=== PATIENT | female | born 1960 | race Caucasian/White ===

== ENCOUNTER → 2018-01-27 | Outpatient (CLI) | payer BC ==
--- NOTE | 2018-01-27 12:28 | RADIOLOGY IMAGING REPORT ---
FACILITY: [facility] PATIENT NAME: Jackie Gutierrez : 1960 MR: [id number] V: [id number] EXAM DATE: ORDERING PHYSICIAN: KEELEY MCDUFFIE TECHNOLOGIST: Location: [facility] [place] Patient: Jackie Gutierrez : 1960 Visit/Account:[id number] Date of Sevice: 01/27/2018 DEXA Scan Clinical history: Hyperparathyroidism. Comparison: None available. LUMBAR SPINE: The bone mineral density (BMD) measured from L1-L4 correlates with a Z-score -0.2 and a T-score of -1 .5 which is osteopenia as defined by the World Health Organization. The corresponding risk of fractu re in the lumbar spine is 3 times increased compared with a young adult reference population. HIP: Bone mineral density (BMD) measured in the Left total hip region correlates with a Z-score -0.4 and a T-score of -1.4 which is osteopenia as defined by the World Health Organization. The corresponding risk of fracture in the hip is 2-3 times increased compared with a young adult reference population. T score left femoral neck -1.7 Bone mineral density (BMD) measured in the Femoral Neck region measures 0.804 g/cm2. Impression: 1. Lumbar spine: Osteopenia. 2. Left Hip: Osteopenia. 3. Femoral Neck: Bone Mineral Density is 0.804 g/cm2 The next DEXA scan of this patient should include the following sites: L1-L4 and the left hip. FRAX? WHO Fracture Risk Assessment Tool link: <http://www.shef.ac.uk/FRAX/tool.jsp?locationValue=9> PLEASE NOTE: 1) The World Health Organization defines low BMD as follows: T-score Normal > -1 Osteopenia < -1 and > -2.5 Osteoporosis < -2.5 without fractures Established osteoporosis < -2.5 with fractures 2) In general, you may wish to consider: Diagnosis Treatment Follow-up DEXA Normal BMD Prevention 2-3 years Osteopenia Prevention/therapy 1-2 years Osteoporosis Therapy Yearly 3) Fracture risk estimated from the T-score is more accurate for vertebral fractures (often spontane ous) than for hip fractures. Report Dictated By: Tatiana Alonzo MD at 01/27/2018 12:22 PM Report E-Signed By: Tatiana Alonzo MD at 01/27/2018 12:24 PM WSN:[id number]
== END ==
LOC: RAD 06:49
PROVIDERS: ATTEND Internal Medicine
DX: M85.89 Other specified disorders of bone density and structure, multiple sites (principal)
CPT/HCPCS: 77080

== ENCOUNTER → 2018-02-25 | Outpatient (CLI) | payer BC ==
--- NOTE | 2018-02-25 14:39 | RADIOLOGY IMAGING REPORT ---
FACILITY: [facility] PATIENT NAME: Jackie Gutierrez : 1960 MR: [id number] V: [id number] EXAM DATE: ORDERING PHYSICIAN: KEELEY MCDUFFIE TECHNOLOG[place]: [place] [facility] [place] Gutier[place] : 1960 Visit/Account:[id number] Date of Sevice: 02/25/2018 THYROID Indication: Elevated calcium. Evaluate thyroid gland. Comparison study: None Procedure: There has been satisfactory grayscale ultrasonic evaluation of the thyroid gland. Findings: Right lobe: The right lobe measures 4.6 cm x 1.2 cm x 1.2 cm in its sagittal, transverse and AP dimen sions. There is no nodule in the right lobe. Left lobe: The left lobe measures 4.5 cm x 0.9 cm x 1 cm in its sagittal, transverse and AP dimension s. There are no nodules in the left lobe than a couple a small tiny cysts. IMPRESSION: 1. Essentially normal thyroid ultrasound. No findings of a dominant nodule. No findings of a solid nodule. Report Dictated By: Saqib Saunders MD at 02/25/2018 2:34 PM Report E-Signed By: Saqib Saunders MD at 02/25/2018 2:35 PM WSN:[email or web address]
--- NOTE | 2018-02-25 16:46 | RADIOLOGY IMAGING REPORT ---
FACILITY: [facility] - [place] [place] PATIENT NAME: Jackie Gutierrez : 1960 MR: [id number] V: [id number] EXAM DATE: ORDERING PHYSICIAN: KEELEY MCDUFFIE TECHNOLOGIST: Location: [facility] Patient: Jackie Gutierrez : 1960 Visit/Account:[id number] Date of Sevice: 02/25/2018 Examination: Nuclear Medicine Parathyroid Scan Comparison: None available History: Hypercalcemia. Procedure: 26.9 mCi technetium 99m Sestamibi was injected intravenously. Multiplanar Gamma camera im ages and SPECT were obtained of the head, neck and chest at 15 minutes and 3 hours following radiotra cer administration. FINDINGS: 15 minute images: Normal uptake of tracer by the salivary glands, the thyroid gland, myocardium, and visualized upper abdomen. 3 hour images: Normal washout of tracer from the thyroid gland. No focal areas of abnormal radiotrac er uptake are identified in the neck or mediastinum. IMPRESSION: No scintigraphic evidence of a parathyroid adenoma or ectopic parathyroid tissue. Report Dictated By: Walt Vail MD at 02/25/2018 4:39 PM Report E-Signed By: Walt Vail MD at 02/25/2018 4:42 PM WSN:[id number]
== END ==
LOC: NUC 01:49
PROVIDERS: ATTEND Internal Medicine
DX: R79.89 Other specified abnormal findings of blood chemistry (principal)
CPT/HCPCS: 76536; 78070; A9500